=== PATIENT | male | born 1995 | race Caucasian/White ===

== ENCOUNTER 2017-10-08 19:26 | Emergency (ER) | payer OTHER ==
[~2017-10-08] VITALS: Ht 190.5 cm; Wt 94.3 kg
[2017-10-08 19:27] VITALS: BP 148/71
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
[2017-10-08] MEDS ORDERED: ONDANSETRON ODT 4 MG TAB.RAPDIS PO ONE (20:15)
--- NOTE | 2017-10-08 21:36 | RAD ---
CT Head W/O Contrast: History: 100500.001 Left sided severe headache after sex tonight Comparison: none Axial images were obtained without contrast. The lawson and white matter appears normal and symmetrical for the patients age. There is no mass effect, extraaxial fluid collections or hydrocephalus. There is no gross bleed. There is no focal loss of lawson-white matter distinction to suggest acute ischemia, i.e. stroke. Impression: No acute findings. PQRS Compliance Statement: One or more of the following individualized dose reduction techniques were utilized for this examination: 1. Automated exposure control 2. Adjustment of the mA and/or kV according to patient size 3. Use of iterative reconstruction technique Electronically signed by: David Man III, MD (10/08/2017 9:32 PM) [facility]
[2017-10-08] MEDS ORDERED: SUMAtriptan SUCC 6 MG/0.5 ML VIAL SQ ONE (22:00)
[2017-10-08] MEDS ORDERED: KETOROLAC 60 MG/2 ML VIAL. IM ONE (22:00)
[2017-10-08] MEDS ORDERED: SUMA100T3 PO (22:01)
[2017-10-08] MEDS ORDERED: IBUP400T18 PO (22:01)
[2017-10-08] MEDS ORDERED: HYDR-79 PO (22:01)
== END 2017-10-08 22:23 | disposition home or self-care (01) ==
LOC: ER 19:26
DX: G43.809 Other migraine, not intractable, without status migrainosus (principal)
CPT/HCPCS: 70450; 99284-25